=== PATIENT | female | born 1995 | race African-American/Black ===

== ENCOUNTER 2022-04-15 19:38 | Emergency (ER) | payer MEDICAID, OTHER ==
[~2022-04-15] VITALS: Ht 170.2 cm; Wt 75.0 kg
[~2022-04-15 19:38] MED LIST: BACTRIM; TRAZODONE; ZOLOFT
[2022-04-15 22:27] VITALS: BP 117/70
== END 2022-04-16 04:23 | disposition left against medical advice (07) ==
LOC: ER 19:38
DX: Z53.21 Procedure and treatment not carried out due to patient leaving prior to being seen by health care provider (principal); M79.602 Pain in left arm; Z20.2 Contact with and (suspected) exposure to infections with a predominantly sexual mode of transmission